=== PATIENT | female | born 1965 | race Caucasian/White ===

== ENCOUNTER 2017-04-18 23:23 | Emergency (ER) | payer SELFPAY ==
[~2017-04-18] VITALS: Ht 152.4 cm; Wt 86.0 kg
[~2017-04-18 23:23] MED LIST: GLIP5TAB12 PO; LEVO500T15 PO; METF10002 PO
[2017-04-19 01:06] LABS: BASOPHILS % 0.8 % (0.0-2.0); EOSINOPHILS % 1.7 % (0.0-5.0); HEMATOCRIT. 41.6 % (36.0-48.0); HEMOGLOBIN. 14.2 g/dL (12.0-16.0); LYMPHOCYTES % 38.9 % (20.0-50.0); MEAN CORPUSCULAR HEMOGLOBIN 29.5 pg (28.0-32.0); MEAN CORPUSCULAR VOLUME 86.6 fL (81.0-99.0); MEAN PLATELET VOLUME 9.2 fl (7.4-10.4); MONOCYTES % 6.8 % (2.0-8.0); NEUTROPHILS % 51.8 % (40.0-76.0); PLATELET 168 x1000/uL (130-400); RED CELL DISTRIBUTION WIDTH 13.8 % (11.6-14.6)
[2017-04-19 01:13] LABS: CARBON DIOXIDE 28 mEq/L (21-32); CHLORIDE 102 mEq/L (98-107); TROPONIN I < 0.02 ng/mL (0.00-0.04)
[2017-04-19 02:09] VITALS: BP 121/74
== END 2017-04-19 02:07 | disposition home or self-care (01) ==
LOC: ER 23:24
DX: R07.9 Chest pain, unspecified (principal); I10 Essential (primary) hypertension; E11.9 Type 2 diabetes mellitus without complications; Z98.890 Other specified postprocedural states; Z88.6 Allergy status to analgesic agent
CPT/HCPCS: 36415; 71010; 80053; 84484; 85025; 93005; 99285

== ENCOUNTER 2019-02-05 12:04 | Emergency (ER) | payer MEDICAID ==
[~2019-02-05] VITALS: Ht 165.1 cm; Wt 78.0 kg
[~2019-02-05 12:04] MED LIST changes: -LEVO500T15 PO; +LEVO500T2 PO; +METF-416 PO; -METF10002 PO
[2019-02-05] MEDS ORDERED: SODIUM CHLORIDE 0.9% 1,000 ML IV ONE (17:15)
[2019-02-05] MEDS ORDERED: MORPHINE SULFATE 4 MG/ML CPJ (NOT FOR IM USE) IV ONE (17:15)
[2019-02-05] MEDS ORDERED: ONDANSETRON HCL 4MG/2ML INJ IV ONE (17:15)
[2019-02-05 17:41] LABS: BASOPHILS % 0.8 % (0.0-2.0); EOSINOPHILS % 1.8 % (0.0-5.0); HEMATOCRIT. 43.6 % (36.0-48.0); HEMOGLOBIN. 15.3 g/dL (12.0-16.0); LYMPHOCYTES % 29.5 % (20.0-50.0); MEAN CORPUSCULAR HEMOGLOBIN 30.7 pg (28.0-32.0); MEAN CORPUSCULAR VOLUME 87.6 fL (81.0-99.0); MEAN PLATELET VOLUME 8.7 fl (7.4-10.4); MONOCYTES % 5.9 % (2.0-8.0); PLATELET 243 x1000/uL (130-400); RED BLOOD CELL COUNT 4.98 mill/uL (4.2-5.4); RED CELL DISTRIBUTION WIDTH 13.5 % (11.6-14.6)
[2019-02-05 17:45] LABS: CHLORIDE 102 mEq/L (98-107); INR 1.1; PROTHROMBIN TIME 11.1 sec (9.6-11.0)
[2019-02-05 17:47] LABS: HCG SCREEN NEGATIVE
[2019-02-05 18:21] LABS: CLARITY URINE CLOUDY (CLEAR); COLOR URINE YELLOW (YELLOW); KETONES URINE NEGATIVE (NEGATIVE); LEUKOCYTE ESTERASE URINE 2+ (NEGATIVE); NITRITE URINE NEGATIVE (NEGATIVE); OCCULT BLOOD URINE 2+ (NEGATIVE); PH URINE 5.5 (4.5-8.0); PROTEIN URINE TRACE (NEGATIVE); SPECIFIC GRAVITY URINE 1.025 (1.005-1.030)
[2019-02-05] MEDS ORDERED: CEFTRIAXONE 1 G PREMIX 50 ML IV ONE (18:45)
[2019-02-05 20:36] VITALS: BP 147/77
== END 2019-02-05 20:40 | disposition home or self-care (01) ==
LOC: ER 12:04
DX: N30.00 Acute cystitis without hematuria (principal); N93.9 Abnormal uterine and vaginal bleeding, unspecified; E11.65 Type 2 diabetes mellitus with hyperglycemia; I10 Essential (primary) hypertension; Z90.710 Acquired absence of both cervix and uterus; Z79.84 Long term (current) use of oral hypoglycemic drugs
CPT/HCPCS: 36415; 76830; 76856; 80053; 81003; 81025; 84703; 85025; 85610; 87077; 87086; 87186; 96361; 96365; 96375; 99284; J0696; J2270; J2405; J7030

== ENCOUNTER 2019-09-17 09:08 | Emergency (ER) | payer MEDICAID ==
[~2019-09-17] VITALS: Ht 152.4 cm; Wt 75.0 kg
[2019-09-17] MEDS ORDERED: SODIUM CHLORIDE 0.9% 1,000 ML IV ONE ×2 (10:26→12:06)
[2019-09-17] MEDS ORDERED: ONDANSETRON HCL 4MG/2ML INJ IV STA ×2 (10:26→12:06)
[2019-09-17] MEDS ORDERED: MECLIZINE 25MG TABLET PO ONE ×2 (10:30→12:15)
[2019-09-17 10:38] LABS: BASOPHILS % 0.8 % (0.0-2.0); EOSINOPHILS % 1.1 % (0.0-5.0); HEMOGLOBIN. 15.3 g/dL (12.0-16.0); LYMPHOCYTES % 25.3 % (20.0-50.0); MEAN CORPUSCULAR HEMOGLOBIN 30.7 pg (28.0-32.0); MEAN CORPUSCULAR VOLUME 88.3 fL (81.0-99.0); MEAN PLATELET VOLUME 9.5 fl (7.4-10.4); MONOCYTES % 5.4 % (2.0-8.0); NEUTROPHILS % 67.4 % (40.0-76.0); PLATELET 200 x1000/uL (130-400); RED BLOOD CELL COUNT 4.98 mill/uL (4.2-5.4); RED CELL DISTRIBUTION WIDTH 13.1 % (11.6-14.6)
[2019-09-17 10:40] LABS: CHLORIDE 101 mEq/L (98-107)
[2019-09-17 12:46] LABS: CLARITY URINE CLEAR (CLEAR); COLOR URINE YELLOW (YELLOW); KETONES URINE TRACE (NEGATIVE); LEUKOCYTE ESTERASE URINE NEGATIVE (NEGATIVE); NITRITE URINE NEGATIVE (NEGATIVE); OCCULT BLOOD URINE NEGATIVE (NEGATIVE); PH URINE 7.5 (4.5-8.0); PROTEIN URINE NEGATIVE (NEGATIVE); SPECIFIC GRAVITY URINE 1.031 (1.005-1.030); UROBILINOGEN URINE 0.2 E.U./dL (0.2-1.0)
[2019-09-17 14:15] VITALS: BP 133/85
== END 2019-09-17 14:15 | disposition home or self-care (01) ==
LOC: ER 09:08
DX: R42 Dizziness and giddiness (principal); R10.9 Unspecified abdominal pain; R11.0 Nausea; I10 Essential (primary) hypertension; E11.9 Type 2 diabetes mellitus without complications
CPT/HCPCS: 36415; 74176; 80053; 81003; 85025; 93005; 96374; 96375; 99284; J2405; J7030; J8597

== ENCOUNTER 2020-08-23 11:34 | Emergency (ER) | payer MEDICAID ==
[~2020-08-23] VITALS: Ht 165.1 cm; Wt 81.8 kg
[2020-08-23] MEDS ORDERED: ACETAMINOPHEN 325MG TABLET PO STA (12:21)
[2020-08-23 13:07] LABS: BASOPHILS % 0.4 % (0.0-2.0); EOSINOPHILS % 0.9 % (0.0-5.0); HEMATOCRIT. 40.8 % (36.0-48.0); HEMOGLOBIN. 13.9 g/dL (12.0-16.0); LYMPHOCYTES % 33.3 % (20.0-50.0); MEAN CORPUSCULAR HEMOGLOBIN 30.3 pg (28.0-32.0); MEAN CORPUSCULAR VOLUME 88.6 fL (81.0-99.0); MEAN PLATELET VOLUME 9.4 fl (7.4-10.4); MONOCYTES % 6.5 % (2.0-8.0); NEUTROPHILS % 58.9 % (40.0-76.0); PLATELET 182 x1000/uL (130-400); RED BLOOD CELL COUNT 4.61 mill/uL (4.2-5.4); RED CELL DISTRIBUTION WIDTH 13.2 % (11.6-14.6)
[2020-08-23 13:14] LABS: CHLORIDE 105 mEq/L (98-107)
[2020-08-23 13:33] LABS: CLARITY URINE CLOUDY (CLEAR); COLOR URINE YELLOW (YELLOW); KETONES URINE NEGATIVE (NEGATIVE); LEUKOCYTE ESTERASE URINE 2+ (NEGATIVE); NITRITE URINE POSITIVE (NEGATIVE); OCCULT BLOOD URINE 2+ (NEGATIVE); PROTEIN URINE NEGATIVE (NEGATIVE)
[2020-08-23 14:12] VITALS: BP 120/78
== END 2020-08-23 14:13 | disposition home or self-care (01) ==
LOC: ER 11:34
DX: N39.0 Urinary tract infection, site not specified (principal); M25.512 Pain in left shoulder; R05 Cough; R07.89 Other chest pain; R03.0 Elevated blood-pressure reading, without diagnosis of hypertension; E11.9 Type 2 diabetes mellitus without complications; Z88.6 Allergy status to analgesic agent
CPT/HCPCS: 36415; 71045; 80053; 81003; 84484; 85025; 87077; 87186; 93005; 99285

== ENCOUNTER 2022-02-20 19:31 | Emergency (ER) | payer OTHER ==
[~2022-02-20] VITALS: Ht 152.4 cm; Wt 76.9 kg
[~2022-02-20 19:31] MED LIST changes: +OMEP20CA14 MT; +ONDA4TAB11 PO; +TRAM50TA MT
[2022-02-20 21:14] VITALS: BP 138/86
[2022-02-20] MEDS ORDERED: ACET-2708 MT (22:59)
[2022-02-20] MEDS ORDERED: CEPH500C2 MT (22:59)
[2022-02-20] MEDS ORDERED: CEPHALEXIN 250MG CAPSULE PO ONE (23:00)
[2022-02-20] MEDS ORDERED: TETANUS, DIPHTHERIA, PERTUSSIS VAC/PF 0.5ML (>10YR OLD) IM ONE (23:00)
[2022-02-20] MEDS ORDERED: ACETAMINOPHEN 500MG TABLET PO ONE (23:00)
== END 2022-02-21 00:20 | disposition left against medical advice (07) ==
LOC: ER 19:31
DX: L03.032 Cellulitis of left toe (principal); E11.9 Type 2 diabetes mellitus without complications; Z98.890 Other specified postprocedural states; Z87.440 Personal history of urinary (tract) infections; Z79.899 Other long term (current) drug therapy
CPT/HCPCS: 99283

== ENCOUNTER 2022-07-29 03:53 | Emergency (ER) | payer OTHER ==
[~2022-07-29] VITALS: Ht 154.9 cm; Wt 77.0 kg
[~2022-07-29 03:53] MED LIST changes: +ACET-2708 MT; +CEPH500C2 MT
[2022-07-29 04:05] VITALS: BP 161/94
[2022-07-29 09:01] LABS: CLARITY URINE CLOUDY (CLEAR); COLOR URINE YELLOW (YELLOW); KETONES URINE NEGATIVE (NEGATIVE); LEUKOCYTE ESTERASE URINE 1+ (NEGATIVE); NITRITE URINE NEGATIVE (NEGATIVE); OCCULT BLOOD URINE NEGATIVE (NEGATIVE); PROTEIN URINE 1+ (NEGATIVE)
[2022-07-29 09:03] LABS: CHLORIDE 101 mEq/L (98-107)
[2022-07-29 09:23] LABS: BASOPHILS % 0.8 % (0.0-2.0); EOSINOPHILS % 1.7 % (0.0-5.0); HEMATOCRIT. 44.2 % (36.0-48.0); HEMOGLOBIN. 14.9 g/dL (12.0-16.0); LYMPHOCYTES % 36.2 % (20.0-50.0); MEAN CORPUSCULAR HEMOGLOBIN 29.9 pg (28.0-32.0); MEAN CORPUSCULAR VOLUME 88.7 fL (81.0-99.0); MEAN PLATELET VOLUME 9.2 fl (7.4-10.4); MONOCYTES % 6.8 % (2.0-8.0); NEUTROPHILS % 54.5 % (40.0-76.0); PLATELET 184 x1000/uL (130-400); RED BLOOD CELL COUNT 4.98 mill/uL (4.2-5.4); RED CELL DISTRIBUTION WIDTH 13.4 % (11.6-14.6)
[2022-07-29] MEDS ORDERED: CEPH500C2 MT ×3 (09:30→09:43)
[2022-07-29] MEDS ORDERED: CEPHALEXIN 250MG CAPSULE PO ONE (09:30)
[2022-07-29] MEDS ORDERED: OMEP40CA20 PO ×3 (09:38→09:43)
== END 2022-07-29 10:13 | disposition home or self-care (01) ==
LOC: ER 03:53
DX: N12 Tubulo-interstitial nephritis, not specified as acute or chronic (principal); B96.20 Unspecified Escherichia coli [E. coli] as the cause of diseases classified elsewhere; E11.65 Type 2 diabetes mellitus with hyperglycemia; R03.0 Elevated blood-pressure reading, without diagnosis of hypertension; Z79.84 Long term (current) use of oral hypoglycemic drugs
CPT/HCPCS: 36415; 80053; 81003; 85025; 87077; 87186; 93005; 99284

== ENCOUNTER 2024-12-07 11:39 | Emergency (ER) | payer OTHER ==
[~2024-12-07] VITALS: Ht 152.4 cm; Wt 77.1 kg
[~2024-12-07 11:39] MED LIST changes: -GLIP5TAB12 PO; +GLIP5TAB22 PO; +OMEP40CA20 PO; +ONDA-239 PO; -ONDA4TAB11 PO
[2024-12-07 11:56] VITALS: O2SAT 98
[2024-12-07 14:04] LABS: CLARITY URINE CLEAR (CLEAR); COLOR URINE YELLOW (YELLOW); GLUCOSE URINE NEGATIVE (NEGATIVE); KETONES URINE NEGATIVE (NEGATIVE); LEUKOCYTE ESTERASE URINE TRACE (NEGATIVE); NITRITE URINE NEGATIVE (NEGATIVE); OCCULT BLOOD URINE NEGATIVE (NEGATIVE); PH URINE 5.5 (4.5-8.0); PROTEIN URINE 1+ (NEGATIVE); SPECIFIC GRAVITY URINE 1.022 (1.005-1.030)
[2024-12-07 14:28] LABS: SQUAMOUS EPITHELIAL CELL URINE 3+ /lpf (RARE/1+)
[2024-12-07 14:29] LABS: BACTERIA URINE 1+
[2024-12-07 14:30] LABS: RBC URINE NONE SEEN /hpf (0-2); WBC URINE 0-2 /hpf (0-2)
[2024-12-07] MEDS ORDERED: ACETAMINOPHEN WITH CODEINE 300/30MG TABLET PO ONE (15:00)
[2024-12-07 15:34] LABS: BASOPHILS % 0.5 % (0.0-2.0); EOSINOPHILS % 1.4 % (0.0-5.0); HEMATOCRIT. 40.5 % (36.0-48.0); HEMOGLOBIN. 13.4 g/dL (12.0-16.0); LYMPHOCYTES % 31.8 % (20.0-50.0); MEAN CORPUSCULAR HEMOGLOBIN 30.1 pg (28.0-32.0); MEAN CORPUSCULAR VOLUME 91.1 fL (81.0-99.0); MEAN PLATELET VOLUME 8.7 fl (7.4-10.4); MONOCYTES % 5.9 % (2.0-8.0); NEUTROPHILS % 60.4 % (40.0-76.0); PLATELET 232 x1000/uL (130-400); RED BLOOD CELL COUNT 4.45 mill/uL (4.2-5.4); WHITE BLOOD COUNT 6.6 x1000/uL (4.5-11.0)
[2024-12-07 15:39] LABS: CHLORIDE 108 mEq/L (98-107); POTASSIUM 3.9 mEq/L (3.5-5.1); SODIUM 143 mEq/L (136-145)
[2024-12-07 15:40] LABS: CALCIUM 9.3 mg/dL (8.7-10.4); CARBON DIOXIDE 28 mEq/L (21-32)
[2024-12-07 15:45] LABS: CREATININE 0.7 mg/dL (0.6-1.0); GLUCOSE 123 mg/dL (70-105); UREA NITROGEN BLOOD 15 mg/dL (9-23)
[2024-12-07 15:47] LABS: ALANINE AMINOTRANSFERASE 10 IU/L (10-49); ASPARTATE AMINOTRANSFERASE 14 IU/L (<34); BILIRUBIN TOTAL 0.6 mg/dL (0.1-1.0); PROTEIN TOTAL 6.9 g/dL (6.0-8.3)
[2024-12-07 15:58] LABS: TROPONIN I HIGH SENSITIVITY < 4 ng/L (3.0-34)
[2024-12-07] MEDS: ACETAMINOPHEN WITH CODEINE 300/30MG TABLET PO NR (16:05)
[2024-12-07] MEDS ORDERED: ACET-2708 MT (17:55)
[2024-12-07 18:09] VITALS: BP 130/82; PULSE 84; RESP 16; TEMP 36.8; O2SAT 98
== END 2024-12-07 18:10 | disposition home or self-care (01) ==
LOC: ER 12:55
DX: N30.90 Cystitis, unspecified without hematuria (principal); E11.9 Type 2 diabetes mellitus without complications; Z98.890 Other specified postprocedural states; Z88.6 Allergy status to analgesic agent; Z79.84 Long term (current) use of oral hypoglycemic drugs; Z79.899 Other long term (current) drug therapy
CPT/HCPCS: 36415; 71045; 74176; 80053; 81003; 81025; 84484; 85025; 93005; 99285